=== PATIENT | male | born 1990 | race African-American/Black ===

== ENCOUNTER → 2016-06-27 | Emergency (ER) | payer OTHER ==
[~2016-06-27] MED LIST: AZITHROMYCIN 1 GM PACKET ONE; AZITHROMYCIN 1 GM PACKET PO ONE; LIDOCAINE HCL 2% (20ML MULTI-DOSE VIAL) NR ONE; cefTRIAXone SODIUM 1 GM VIAL ONE
[2016-06-27 08:51] VITALS: BMI 22.8
--- NOTE | 2016-06-27 09:14 | PDOC ---
History of Present Illness - General Chief Complaint: Rectal Bleed Stated Complaint: ABD PAIN Time Seen by Provider: 06/27/16 09:00 History Source: Patient Exam Limitations: No Limitations - History of Present Illness Initial Comments: 06/27/16 09:05 25 y m hx of asthma. homeless, c/o rectal bleed ater 2 days of llq pain and constipation. straining for bm's. pain and swelling in his rectum. no fever. no n/v/d. no hx of prior similar pains. also thinks may have an std and foot fungus. + unprotected heterosexual sex.l in ed, in [place]. hemodynmically stable Past History - Past Medical History Allergies/Adverse Reactions: Allergies Allergy/AdvReac Type Severity Reaction Status Date / Time No Known Allergies Allergy Verified 06/27/16 08:47 Asthma: Yes - Psycho/Social/Smoking Cessation Hx Anxiety: No Suicidal Ideation: No Smoking History: Current every day smoker Have you smoked in the past 12 months: Yes Number of Cigarettes Smoked Daily: 3 Information on smoking cessation initiated: Yes 'Breaking Loose' booklet given: 06/27/16 Hx Alcohol Use: Yes (social) Drug/Substance Use Hx: No Substance Use Type: Alcohol *Physical Exam - Vital Signs Last Vital Signs Temp Pulse Resp BP Pulse Ox 98.0 F 66 18 118/71 100 06/27/16 08:48 06/27/16 08:48 06/27/16 08:48 06/27/16 08:48 06/27/16 08:48 - Physical Exam General Appearance: Yes: Nourished, Appropriately Dressed, Disheveled. No: Apparent Distress HEENT: positive: EOMI, JULIAN, Normal ENT Inspection Respiratory/Chest: positive: Lungs Clear, Normal Breath Sounds. negative: Respiratory Distress Cardiovascular: positive: Regular Rhythm, Regular Rate Gastrointestinal/Abdominal: positive: Normal Bowel Sounds, Flat, Soft. negative : Tender Rectal Exam: positive: hemorrhoids (external bleeding hemorrhoid. mild tenderness. ) Musculoskeletal: negative: CVA Tenderness Extremity: positive: Normal Capillary Refill, Normal Inspection Integumentary: positive: Normal Color, Other (no evidence of fungal infecton) *DC/Admit/Observation/Transfer Diagnosis at time of Disposition: Homeless, Sexually transmitted disease in male, Bleeding external hemorrhoids - Discharge Dispostion Disposition: HOME Condition at time of disposition: Good - Patient Instructions Printed Discharge Instructions: DI for Hemorrhoids, DI for Rectal Bleeding Additional Instructions: PREPARATION H CREAM TWICE A DAY PLENTY OF FLUIDS COLACE PRESCRIBED ALWAYS WEAR CONDOMS RETURN IF WORSENING OR NEW SYMPTOMS
[2016-06-27 11:35] VITALS: BP 116/72; PULSE 75; TEMP 98.2
== END | disposition home or self-care (01) ==
LOC: JER 08:46
DX: K64.4 Residual hemorrhoidal skin tags (principal); K59.00 Constipation, unspecified; Z20.2 Contact with and (suspected) exposure to infections with a predominantly sexual mode of transmission; Z59.0 Homelessness
CPT/HCPCS: 36415; 87491; 87591; 96372; 99282-25

== ENCOUNTER 2017-08-29 22:47 | Emergency (ER) | payer OTHER ==
[2017-08-29 22:51] VITALS: BP 140/70; PULSE 73; TEMP 98.2; BMI 24.0
[2017-08-29] MEDS ORDERED: KETOROLAC TROMETHAMINE 60 MG/2 ML VIAL IM ONE (23:40)
--- NOTE | 2017-08-30 | PDOC ---
History of Present Illness - General Chief Complaint: Back Pain Stated Complaint: BACK PAIN Time Seen by Provider: 08/29/17 23:00 History Source: Patient Exam Limitations: No Limitations - History of Present Illness Initial Comments: CHIEF COMPLAINT: 26 y/o male with diagnosed pinched nerve in lumbar spine c/o left low back pain x 5 days. HISTORY OF PRESENT ILLNESS: The patient states the pain travels down his left leg. He states he often lifts a lot at work. He has a diagnosed pinched nerve in his lumbar spine but has not followed up with an orthopedic doctor. He denies fall, recent trauma to back, saddle anesthesia, numbness/tingling in LEs , bowel/bladder incontinence. Vital signs on arrival are within normal limits. REVIEW OF SYSTEMS: GENERAL/CONSTITUTIONAL: No fever/chills. No weakness. No weight change. HEAD, EYES, EARS, NOSE AND THROAT: No change in vision. No ear pain or discharge. No sore throat. CARDIOVASCULAR: No chest pain or shortness of breath. RESPIRATORY: No cough, wheezing, or hemoptysis. GASTROINTESTINAL: No abd pain, nausea, vomiting, diarrhea. GENITOURINARY: No dysuria, frequency, or change in urination. MUSCULOSKELETAL: +left low back pain radiating to left leg. No joint or muscle swelling or pain. No neck pain. SKIN: No rash or easy bruising. NEUROLOGIC: No headache, vertigo, loss of consciousness, or loss of sensation. PHYSICAL EXAM: GENERAL: The patient is awake, alert, and fully oriented, in no acute distress. Normal gait. HEAD: Normal with no signs of trauma. ENT: Pupils equal, round and reactive to light, extraocular movements intact, sclera anicteric, conjunctiva clear. Neck supple. LUNGS: Clear to auscultation bilaterally. Normal excursion. No respiratory distress or use of accessory muscles. CV: RRR, S1/S2, no MRG. Cap refill < 2 sec. ABDOMEN: Soft, non-distended, non-tender even to deep palpation, no hepatomegaly or splenomegaly, no masses. BACK: pain with palpation of left lumbar paravertebral muscles. Full ROM of lumbar spine. Pain with lateral movements of lumbar spine. EXTREMITIES: Normal range of motion, no edema. NEUROLOGICAL: Normal speech, normal gait. CN II-XII grossly intact. no saddle anesthesia. PSYCH: Normal mood, normal affect. SKIN: Warm, dry, normal turgor, no rashes or lesions noted. Past History - Past Medical History Allergies/Adverse Reactions: Allergies Allergy/AdvReac Type Severity Reaction Status Date / Time No Known Allergies Allergy Verified 08/29/17 22:48 Home Medications: Ambulatory Orders Docusate Sodium [Colace -] 100 mg PO BID #14 capsule 06/27/16 Phenylephrine HCl/Witch Jessie [Preparation H Cooling Gel] 51 gm TP BID #1 gel..gram. 06/27/16 Cyclobenzaprine HCl [Flexeril 10 mg] 10 mg PO BID PRN #15 tablet 08/30/17 Naproxen 500 mg PO BID #20 tablet 08/30/17 Asthma: Yes COPD: No - Suicide/Smoking/Psychosocial Hx Smoking History: Current every day smoker Have you smoked in the past 12 months: Yes Number of Cigarettes Smoked Daily: 3 Information on smoking cessation initiated: No 'Breaking Loose' booklet given: 06/27/16 Hx Alcohol Use: Yes (social) Drug/Substance Use Hx: No Substance Use Type: Alcohol *Physical Exam - Vital Signs Last Vital Signs Temp Pulse Resp BP Pulse Ox 98.2 F 73 18 140/70 100 08/29/17 22:49 08/29/17 22:49 08/29/17 22:49 08/29/17 22:49 08/29/17 22:49 Medical Decision Making - Medical Decision Making A/P: 26 y/o afebrile male with left lumbar muscular pain with sciatica. Plan is as follows: 1. IM toradol Will discharge to home with rx for naproxen and flexeril. Informed him that flexeril may cause drowsiness. Suggested heating pad and stretching daily and f /u with back specialist. Pt instructed to return to the ER with any worsening or concerning symptoms. The patient verbalizes understanding of all instructions, has no further questions and is awaiting discharge. *DC/Admit/Observation/Transfer Diagnosis at time of Disposition: Sciatica of left side - Discharge Dispostion Disposition: HOME Condition at time of disposition: Good - Referrals - Patient Instructions Printed Discharge Instructions: DI for Back Pain With Sciatica Additional Instructions: Discharge Instructions: -You have sciatica -2 prescriptions have been sent to your pharmacy; flexeril may cause drowsiness -Apply heating pad to affected area and stretch affected area daily -Follow up with Dr. Pope within 2 weeks -Return to the ER with any worsening or concerning symptoms - Post Discharge Activity Forms/Work/School Notes: Back to Work
[2017-08-30] MEDS ORDERED: KETOROLAC TROMETHAMINE 60 MG/2 ML VIAL ONE (00:05)
--- NOTE | 2017-08-30 00:12 | PDOC ---
*Physical Exam - Vital Signs Last Vital Signs Temp Pulse Resp BP Pulse Ox 98.2 F 73 18 140/70 100 08/29/17 22:49 08/29/17 22:49 08/29/17 22:49 08/29/17 22:49 08/29/17 22:49 Medical Decision Making - Medical Decision Making 08/30/17 00:12 agree with care from RANDALL Almaguer *DC/Admit/Observation/Transfer Diagnosis at time of Disposition: Sciatica of left side - Discharge Dispostion Disposition: HOME Condition at time of disposition: Good - Prescriptions Prescriptions: Cyclobenzaprine HCl [Flexeril 10 mg] 10 mg PO BID PRN #15 tablet PRN Reason: Muscle Spasms Naproxen 500 mg PO BID #20 tablet - Referrals - Patient Instructions Printed Discharge Instructions: DI for Back Pain With Sciatica Additional Instructions: Discharge Instructions: -You have sciatica -2 prescriptions have been sent to your pharmacy; flexeril may cause drowsiness -Apply heating pad to affected area and stretch affected area daily -Follow up with Dr. Pope within 2 weeks -Return to the ER with any worsening or concerning symptoms - Post Discharge Activity Forms/Work/School Notes: Back to Work
== END 2017-08-30 00:43 | disposition home or self-care (01) ==
LOC: JER 22:47
PROC: 3E0233Z Introduction of Anti-inflammatory into Muscle, Percutaneous Approach (ICD-10-PCS; principal; 2017-08-29)
DX: M54.32 Sciatica, left side (principal); F17.210 Nicotine dependence, cigarettes, uncomplicated
CPT/HCPCS: 96372; 99281-25

== ENCOUNTER 2018-08-08 18:36 | Emergency (ER) | payer OTHER ==
[2018-08-08 18:58] VITALS: BP 118/76; PULSE 75; TEMP 98; BMI 23.9
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
[2018-08-08] MEDS ORDERED: KETOROLAC TROMETHAMINE 60 MG/2 ML VIAL IM ONE (19:52)
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
[2018-08-08] MEDS ORDERED: KETOROLAC TROMETHAMINE 60 MG/2 ML VIAL ONE (20:10)
== END 2018-08-08 20:17 | disposition home or self-care (01) ==
LOC: JERFT 18:36
PROC: 3E0233Z Introduction of Anti-inflammatory into Muscle, Percutaneous Approach (ICD-10-PCS; principal; 2018-08-08)
DX: S39.012A Strain of muscle, fascia and tendon of lower back, initial encounter (principal); S16.1XXA Strain of muscle, fascia and tendon at neck level, initial encounter; V43.52XA Car driver injured in collision with other type car in traffic accident, initial encounter; Y93.89 Activity, other specified; Y92.410 Unspecified street and highway as the place of occurrence of the external cause; F17.210 Nicotine dependence, cigarettes, uncomplicated; J45.909 Unspecified asthma, uncomplicated
CPT/HCPCS: 99281-25